=== PATIENT | female | born 1960 | race Caucasian/White ===

== ENCOUNTER 2016-08-06 13:06 | Emergency (ER) | payer OTHER, BC ==
[~2016-08-06] VITALS: Ht 162.6 cm; Wt 75.0 kg
[2016-08-06 13:10] VITALS: BP 148/81; PULSE 123; RESP 18; TEMP 98; O2SAT 98
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
[2016-08-06] MEDS ORDERED: TETANUS/DIPHTHERIA TOXOID ADULT 0.5 ML VIAL IM ONE (13:30)
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
[2016-08-06] MEDS ORDERED: ORPH100T99 PO (14:35)
[2016-08-06] MEDS ORDERED: IBUP-232 PO (14:35)
[2016-08-06] MEDS ORDERED: TRAM50TA PO ×2 (14:35→14:50)
[2016-08-06 15:05] VITALS: BP 127/89; TEMP 98.2
== END 2016-08-06 15:06 | disposition home or self-care (01) ==
LOC: NEPC 13:06
DX: S70.01XA Contusion of right hip, initial encounter (principal); S60.221A Contusion of right hand, initial encounter; S20.211A Contusion of right front wall of thorax, initial encounter; S40.211A Abrasion of right shoulder, initial encounter; S50.311A Abrasion of right elbow, initial encounter; S60.511A Abrasion of right hand, initial encounter; V28.1XXA Motorcycle passenger injured in noncollision transport accident in nontraffic accident, initial encounter; Y93.89 Activity, other specified; Y92.481 Parking lot as the place of occurrence of the external cause; Z23 Encounter for immunization
CPT/HCPCS: 71101; 73130; 73502; 90471; 90714